=== PATIENT | female | born 1945 | race Caucasian/White ===

== ENCOUNTER → 2016-06-30 | Outpatient (CLI) | payer MEDICARE, OTHER ==
[~2016-06-30] MED LIST: ASPIRIN E.C. 8181 MG PO; CALCIUM CARBON600 MG PO; COUMADIN 3MG3 MG/TAB PO; DIOVAN 160MG160 MG PO; LASIX 40MG TABL40 MG PO; MICRO-K 1010 MEQ PO; NORVASC 5MG5 MG/TAB PO; OMEGA 31000 MG PO; TENORMIN 5050 MG/TAB PO; VITAMIN D32000 I1 PO; ZOCOR 40MG40 MG PO
== END ==
LOC: MC.RAD 13:22
DX: Z12.31 Encounter for screening mammogram for malignant neoplasm of breast (principal)

== ENCOUNTER 2017-03-15 09:10 | Emergency (ER) | payer MEDICARE, OTHER ==
[~2017-03-15] VITALS: Ht 149.9 cm; Wt 67.3 kg
[2017-03-15 09:15] VITALS: TEMP 98.5
[2017-03-15 10:13] LABS: BASO % 0.4 % (0.0-2.0); EOS # 0.2 (0.0-0.7); GRAN # 6.7 (1.4-6.5); GRAN % 85.6 % (42.2-75.2); LYMPH # 0.6 (1.2-3.4); LYMPH % 7.3 % (20.0-51.0); MEAN CELL VOLUME 87 fl (80.0-100.0); MEAN CORPUSCULAR HGB CONC 32 g/dl (33.0-37.0); MEAN PLATELET VOLUME 9.9 fl (7.4-10.4); MONO # 0.3 (0.1-0.6); MONO % 4.2 % (1.7-9.3); PLATELET COUNT 172 K/mm3 (130-400); RED BLOOD COUNT 4.07 M/mm3 (4.10-5.30); REDCELL DISTRIBUTION WIDTH-CV 15.3 % (11.5-14.5); WHITE BLOOD COUNT 7.8 K/mm3 (4.8-10.8)
[2017-03-15 10:15] LABS: HEMATOCRIT 35.5 % (37.0-47.0); HEMOGLOBIN 11.5 g/dl (12.5-16.0); MEAN CORPUSCULAR HEMOGLOBIN 28 pg (27.0-31.0)
[2017-03-15 10:18] LABS: INR 2.3 (0.8-3.0); PROTHROMBIN TIME 26.6 SECONDS (9.7-12.8)
[2017-03-15 10:20] LABS: PARTIAL THROMBOPLASTIN TIME 34.9 SECONDS (26.0-37.0)
[2017-03-15] MEDS ORDERED: LIPITOR 40MG TA40 MG PO (10:21)
[2017-03-15] MEDS ORDERED: DIOVAN 160MG160 MG PO (10:22)
[2017-03-15] MEDS ORDERED: COUMADIN4 MG PO (10:27)
[2017-03-15] MEDS ORDERED: LASIX 40MG TABL40 MG PO (10:49)
[2017-03-15 11:28] LABS: ADJUSTED CALCIUM 9.2 mg/dL (8.4-10.2); ALANINE AMINOTRANSFERASE 83 U/L (9-52); ALBUMIN 3.9 gm/dL (3.5-5.0); ALKALINE PHOSPHATASE 126 U/L (50-136); ANION GAP 7 mmol/L (7-16); BILIRUBIN,TOTAL 1.2 mg/dL (0.0-1.0); BLOOD UREA NITROGEN 18 mg/dL (7-17); CALCIUM 9.1 mg/dL (8.4-10.2); CARBON DIOXIDE 25 mmol/L (22-30); CHLORIDE 108 mmol/L (98-107); CREATININE, serum 0.99 mg/dL (0.52-1.25); GLUCOSE 102 mg/dL (74-106); POTASSIUM 4.5 mmol/L (3.4-5.0); SODIUM 140 mmol/L (137-145); TOTAL PROTEIN 7.6 gm/dL (6.4-8.2)
[2017-03-15 11:40] LABS: B-TYPE NATRIURETIC PEPTIDE 1680 pg/mL (0-125)
[2017-03-15 11:41] LABS: TROPONIN-I < 0.012 ng/mL (0.000-0.034)
[2017-03-15 11:53] VITALS: BP 142/63; PULSE 68
== END 2017-03-15 12:00 | disposition home or self-care (01) ==
LOC: COL.ER 09:10
PROVIDERS: Family Medicine
DX: I50.9 Heart failure, unspecified (principal); I10 Essential (primary) hypertension; I71.4 Abdominal aortic aneurysm, without rupture; Z79.01 Long term (current) use of anticoagulants; Z95.5 Presence of coronary angioplasty implant and graft
CPT/HCPCS: J1940

== ENCOUNTER → 2017-07-09 | Outpatient (CLI) | payer MEDICARE, OTHER ==
[~2017-07-09] MED LIST changes: +COUMADIN4 MG PO; +LIPITOR 40MG TA40 MG PO
== END ==
LOC: MC.RAD 13:09
DX: Z12.31 Encounter for screening mammogram for malignant neoplasm of breast (principal)

== ENCOUNTER → 2018-07-30 | Outpatient (CLI) | payer MEDICARE, OTHER | LOC: MC.RAD 12:56 | DX: Z12.31 Encounter for screening mammogram for malignant neoplasm of breast (principal) ==

== ENCOUNTER → 2019-08-07 | Outpatient (CLI) | payer MEDICARE, OTHER ==
[~2019-08-07] MED LIST changes: +CALCIUM 600MG+D1 TAB PO; +CATAPRES 0.1MG0.1 MG PO; +COUMADIN 1MG1 MG/TAB PO; +COUMADIN 2MG2 MG/TAB PO; +LOVENOX 6060 MG/0.6 SQ; +MICRO-K 10 EXT10 MEQ PO; -MICRO-K 1010 MEQ PO; -OMEGA 31000 MG PO; +OMEGA-31 SGL PO; +VITAMIN D31000 I1 PO; +ZOVIRAX51 TP
== END ==
LOC: MC.RAD 10:00
DX: Z12.31 Encounter for screening mammogram for malignant neoplasm of breast (principal)

== ENCOUNTER → 2021-02-01 | Day surgery (SDC) | payer MEDICARE, OTHER ==
[~2021-02-01] MED LIST changes: +AMOXICILLIN 50500 MG PO; +APRESOLINE 25MG25 MG PO; -CATAPRES 0.1MG0.1 MG PO; +CATAPRES0.3 MG PO; +FERROUSAL325 MG PO; +FOLIC ACID 11 MG/TA1 PO; +NEPHROCAP PO
== END ==
LOC: SDCO 10:30
DX: Z20.822 Contact with and (suspected) exposure to COVID-19 (principal)

== ENCOUNTER 2021-04-18 10:15 | Inpatient (IN) | payer MEDICARE, OTHER ==
[2021-04-18] VITALS (266 sets, daily range): BP systolic 125–165; BP diastolic 48–69; PULSE 64–80; TEMP 97.6–97.7; O2SAT 90–100
[~2021-04-18] VITALS: Ht 142.2 cm; Wt 50.8 kg
[~2021-04-18 10:15] MED LIST changes: -AMOXICILLIN 50500 MG PO; -APRESOLINE 25MG25 MG PO; -FERROUSAL325 MG PO; -FOLIC ACID 11 MG/TA1 PO; -NEPHROCAP PO
[2021-04-18 10:44] LABS: BASO # 0.1 K/mm3 (0.0-0.2); BASO % 0.8 % (0.0-2.0); EOS # 0.1 K/mm3 (0.0-0.7); EOS % 0.7 % (0-4.0); GRAN # 8.4 K/mm3 (1.4-6.5); GRAN % 87.9 % (42.2-75.2); HEMOGLOBIN 10.8 g/dl (12.5-16.0); LYMPH # 0.6 K/mm3 (1.2-3.4); LYMPH % 5.7 % (20.0-51.0); MEAN CELL VOLUME 89 fl (80.0-100.0); MEAN CORPUSCULAR HEMOGLOBIN 29 pg (27.0-31.0); MEAN CORPUSCULAR HGB CONC 32 g/dl (33.0-37.0); MEAN PLATELET VOLUME 8.9 fl (7.4-10.4); MONO # 0.4 K/mm3 (0.1-0.6); MONO % 4.5 % (1.7-9.3); PLATELET COUNT 275 K/mm3 (130-400); RED BLOOD COUNT 3.75 M/mm3 (4.10-5.30); REDCELL DISTRIBUTION WIDTH-CV 16.8 % (11.5-14.5)
[2021-04-18 10:53] LABS: HEMATOCRIT 33.4 % (37.0-47.0)
[2021-04-18 10:57] LABS: PROTHROMBIN TIME 22.4 SECONDS (9.7-12.8)
[2021-04-18 10:59] LABS: PARTIAL THROMBOPLASTIN TIME 33.6 SECONDS (26.0-37.0)
[2021-04-18 11:04] LABS: ALBUMIN 3.6 gm/dL (3.4-4.8); BILIRUBIN,TOTAL 0.6 mg/dL (0.2-1.2); CALCIUM 8.7 mg/dL (8.4-10.2); CREATININE, serum 2.75 mg/dL (0.57-1.11); POTASSIUM 3.9 mmol/L (3.5-4.5); TOTAL PROTEIN 7.2 gm/dL (6.2-8.1)
[2021-04-18 11:13] LABS: TROPONIN-I 0.036 ng/mL (0.00-0.033)
--- NOTE | 2021-04-18 14:00 | NUR ---
Patient arrives to ICU room 4. She is on cardene gtt at 5 mg/hr. She is alert and oriented and able to ambulate from the cart to the bed. Patient has no complaints at this time. She is oriented to the room and call light placed within reach. She is instructed to call for assistance if she needs to get up to the bathroom. Patient verbalizes understanding.
[2021-04-18] MEDS ORDERED: COUMADIN 2MG2 MG/TAB PO (14:35)
[2021-04-18] MEDS ORDERED: COUMADIN 1MG1 MG/TAB PO (14:35)
[2021-04-18] MEDS ORDERED: FERROUSAL325 MG PO (14:36)
[2021-04-18] MEDS ORDERED: AMOXICILLIN 50500 MG PO (14:36)
--- NOTE | 2021-04-18 15:59 | NUR ---
health care social worker met with patient at bedside. Patient lives at home with her Nino here in [facility]. Patient reports that she is fully independent with her activities of daily living and that she is the caregiver for her . Patient is concerned because her is home alone right now. Nino was recently discharged from this hospital with [facility]. Patient reports that she does not use any assistive devices to assist with mobility and does not utilize O2. PCP is Dr. Euceda and she utilizes [facility] for perscriptions with no cost difficulties. Patient reports that she does have a DPOA-HC established and that her is her agent. Patient's daughter Melody lives in [place]. Patient on the phone with her daughter when i entered the room. Melody reports that she is not coming down from today to assist with her father. Milla with [facility] contacted and notified of the situation. Milla states that Nino had HH come in earlier today. Amando is going to reach out to Nino's insurance case manager and nurse to check on him and will call me with an updates that i can provide to the patient.
--- NOTE | 2021-04-18 19:15 | NUR ---
Bedside report given to GRACIE Bermeo. Patient sitting in bed eating some crackers d/t some nausea. Cardene infusing at 10 mg/hr through Left AC IV.
[2021-04-19] VITALS (386 sets, daily range): BP systolic 126–196; BP diastolic 54–78; PULSE 67–85; TEMP 97.4–99; O2SAT 32–100
[2021-04-19 06:25] LABS: BASO % 0.7 % (0.0-2.0); EOS # 0.2 K/mm3 (0.0-0.7); EOS % 2.8 % (0-4.0); GRAN # 4.5 K/mm3 (1.4-6.5); GRAN % 79.8 % (42.2-75.2); HEMOGLOBIN 9.3 g/dl (12.5-16.0); LYMPH # 0.5 K/mm3 (1.2-3.4); MEAN CELL VOLUME 91 fl (80.0-100.0); MEAN CORPUSCULAR HEMOGLOBIN 29 pg (27.0-31.0); MEAN CORPUSCULAR HGB CONC 32 g/dl (33.0-37.0); MEAN PLATELET VOLUME 8.9 fl (7.4-10.4); MONO # 0.4 K/mm3 (0.1-0.6); MONO % 7.3 % (1.7-9.3); RED BLOOD COUNT 3.19 M/mm3 (4.10-5.30); REDCELL DISTRIBUTION WIDTH-CV 16.8 % (11.5-14.5)
[2021-04-19 06:26] LABS: HEMATOCRIT 28.9 % (37.0-47.0); PLATELET COUNT 163 K/mm3 (130-400)
[2021-04-19 06:33] LABS: INR 2.4 (0.8-3.0); PROTHROMBIN TIME 26.7 SECONDS (9.7-12.8)
[2021-04-19 06:43] LABS: ALBUMIN 2.9 gm/dL (3.4-4.8); BILIRUBIN,TOTAL 0.5 mg/dL (0.2-1.2); CALCIUM 7.8 mg/dL (8.4-10.2); CHOLESTEROL RISK RATIO 6.1; CREATININE, serum 2.7 mg/dL (0.57-1.11); POTASSIUM 3.6 mmol/L (3.5-4.5); TOTAL PROTEIN 5.9 gm/dL (6.2-8.1)
--- NOTE | 2021-04-19 07:00 | NUR ---
PT DOWN TO MRI/MRA.
--- NOTE | 2021-04-19 09:42 | NUR ---
Message left with 's nurse at [facility] to received vein mapping results.
--- NOTE | 2021-04-19 09:44 | NUR ---
NOTIFIED OF SURGERY CONSULT FOR FISTULA AND HD CATH PLACEMENT.
--- NOTE | 2021-04-19 10:43 | NUR ---
Patient to have dialysis catheter surgically placed tomorrow. Concerns for the patients being left at home alone. Contact made with [facility] and they report they went out to see her last night at 1900, have seen him this morning and GRACIE Dudley is to go out again today at 1300. [facility] RN states that is not safe to be at home alone. Patient doesn't believe that her daughter Antonia can make it down to stay with her father. Attempted to make contact with the patient's daughter Antonia in addition to Antonia's Aiden ([phone]) to talk to them about coming and staying with the patient's . Antonia interested in having initiated for her self upon dc. Referral made to [facility].
[2021-04-19 11:30] LABS: PARTIAL THROMBOPLASTIN TIME 27.1 SECONDS (26.0-37.0)
--- NOTE | 2021-04-19 14:37 | NUR ---
CALLED FOR PT'S SBP IN THE 170'S. STATES SHE WILL ORDER PRN HYDRALAZINE, IF THAT DOES NOT WORK WILL NEED TO RESTART NICOLA LEIVA.
--- NOTE | 2021-04-19 15:09 | NUR ---
Referral faxed to [facility]
--- NOTE | 2021-04-19 15:29 | NUR ---
Phone called received from the patient's daughter Melody and her Aiden. They states they just got off of the phone with their father, the patient's and he informed them that he was doing fine. I let both Melody and Aiden know that the [facility] RN, Octavia verbalized that she did not feel like their father should ebe left alone. Melody and Aiden are open to coming and making arrangements to stay with the patient's but would like to talk to the [facility] RN first.
[2021-04-19 18:10] LABS: INR 2.2 (0.8-3.0); PROTHROMBIN TIME 24.1 SECONDS (9.7-12.8)
--- NOTE | 2021-04-19 18:15 | NUR ---
NOTIFIED OF INR 2.2. STATES WILL ORDER MORE VITAMIN K
--- NOTE | 2021-04-19 18:30 | NUR ---
Received report from GRACIE Jarrett. All medications verified and all questions answered. Patient resting in bed in sitting position watching TV. Patient on RA, VSS except for BP of 199/79. Patient reiving PM blood pressure medication. Patient on heparin gtt at 9mls/hr. No concerns or complaints noted from patient at this time. Will resume care of patient at this time.
[2021-04-19 20:25] LABS: COLLECTION METHOD CLEAN CATCH
[2021-04-19 20:46] LABS: PH 5 (5-8); SQUAMOUS EPITHELIAL 0-2 /hpf; URINE APPEARANCE Clear; URINE BACTERIA Moderate /hpf; URINE BILIRUBIN Negative (NEGATIVE); URINE BLOOD Negative (NEGATIVE); URINE COLOR Yellow; URINE GLUCOSE Negative (NEGATIVE); URINE KETONE Trace (NEGATIVE); URINE LEUKOCYTE ESTERASE Negative (NEGATIVE); URINE NITRATE Negative (NEGATIVE); URINE PROTEIN(semi-quant) Negative (NEGATIVE); URINE RBC 0-2 /hpf; URINE UROBILINOGEN Negative (NEGATIVE)
[2021-04-19 23:30] LABS: HEPATITIS B SURFACE ANTIBODY <2.0 (()); HEPATITIS B SURFACE ANTIGEN Negative (Negative); HEPATITIS C VIRUS ANTIBODY Negative (Negative)
[2021-04-20] VITALS (627 sets, daily range): BP systolic 144–198; BP diastolic 55–83; PULSE 75–82; TEMP 97.6–98.2; O2SAT 97–100
[2021-04-20 06:14] LABS: MEAN CORPUSCULAR HGB CONC 29 g/dl (33.0-37.0); PLATELET COUNT 190 K/mm3 (130-400); RED BLOOD COUNT 3.34 M/mm3 (4.10-5.30); REDCELL DISTRIBUTION WIDTH-CV 17.4 % (11.5-14.5)
[2021-04-20 06:17] LABS: HEMATOCRIT 33.4 % (37.0-47.0); HEMOGLOBIN 9.6 g/dl (12.5-16.0); MEAN CELL VOLUME 100 fl (80.0-100.0); MEAN CORPUSCULAR HEMOGLOBIN 29 pg (27.0-31.0)
[2021-04-20 06:34] LABS: CALCIUM 7.7 mg/dL (8.4-10.2); CREATININE, serum 2.94 mg/dL (0.57-1.11); POTASSIUM 3.5 mmol/L (3.5-4.5)
[2021-04-20 06:46] LABS: INR 1.5 (0.8-3.0); PROTHROMBIN TIME 16.2 SECONDS (9.7-12.8)
--- NOTE | 2021-04-20 07:00 | NUR ---
REPORT RECEIVED FROM GRACIE DAWN; PATIENT IN BED RESTING, VITALS ARE WITHIN NORMAL LIMITS WITH THE EXCEPTION OF BP WHICH HAS BEEN ELEVATED OVERNIGHT AND 2 DOSES OF HYDRALAZINE WERE GIVEN PER LÓPEZ.
--- NOTE | 2021-04-20 10:54 | NUR ---
HEPARIN DRIP STOPPED AT 0900 FOR SURGERY THAT IS SCHEDULED FOR LATER THIS AFTERNOON.
--- NOTE | 2021-04-20 18:34 | NUR ---
PATIENT LEFT THE FLOOR AND WENT TO SURGERY FOR FISTULA/DIALYSIS PORT PLACEMENT AT 1700
--- NOTE | 2021-04-20 19:15 | NUR ---
PATIENT ARRIVED TO ROOM AT THIS TIME VIA BED ATTACHED TO MONITORS, NOTED NEW DIALYSIS CATHETER TO RIGHT CHEST WITH DRESSING CDI, AND INCISION FROM AV FISTULA TO RIGHT WRIST AREA WHICH IS WELL APPROXIMATED, SLIGHT SWELLING NOTED TO AREA, REVIEWED WITH PATIENT THAT SHE SHOULD NEVER HAVE BLOOD PRESSURES, IV'S OR LABS OBTAINED FROM THAT ARM
--- NOTE | 2021-04-20 20:51 | NUR ---
PATIENT NOTED TO HAVE FSBS OF 59 GIVEN OPTIONS PATIENT STATED THAT SHE WAS HUNGRY AND WOULD PREFER TO TRY TO EAT SOMETHING RATHER THAN CONSUME GLUCOSE PASTE, GIVEN SANDWHICH TRAY, AND SPRITE.
--- NOTE | 2021-04-20 21:29 | NUR ---
PATIENT CONSUMED TURKEY FROM SANDWICH TRAY, APPLESAUCE AND SPRITE AT THIS TIME, WILL MONITOR FSBS IN APPROX 2 HOURS TO ENSURE APPROPRIATE LEVEL
[2021-04-21] VITALS (537 sets, daily range): BP systolic 151–191; BP diastolic 50–69; PULSE 71–85; TEMP 97.4–97.8; O2SAT 81–100
[2021-04-21 03:19] LABS: MEAN CORPUSCULAR HGB CONC 32 g/dl (33.0-37.0); MEAN PLATELET VOLUME 9.1 fl (7.4-10.4); PLATELET COUNT 166 K/mm3 (130-400); RED BLOOD COUNT 2.99 M/mm3 (4.10-5.30); REDCELL DISTRIBUTION WIDTH-CV 17.5 % (11.5-14.5)
[2021-04-21 03:20] LABS: HEMATOCRIT 27.1 % (37.0-47.0); HEMOGLOBIN 8.6 g/dl (12.5-16.0); MEAN CELL VOLUME 91 fl (80.0-100.0); MEAN CORPUSCULAR HEMOGLOBIN 29 pg (27.0-31.0)
[2021-04-21 03:27] LABS: INR 1.1 (0.8-3.0); PROTHROMBIN TIME 12.7 SECONDS (9.7-12.8)
[2021-04-21 03:34] LABS: CALCIUM 7.7 mg/dL (8.4-10.2); CREATININE, serum 3.56 mg/dL (0.57-1.11); POTASSIUM 3.6 mmol/L (3.5-4.5)
--- NOTE | 2021-04-21 03:36 | NUR ---
Lab called this RN with critical CO2 result. Result taken as primary nurse busy with patient and relayed to GRACIE Bermeo
--- NOTE | 2021-04-21 08:29 | NUR ---
REPORT RECEIVED FROM GRACIE GALDAMEZ. PATIENT IS RESTING IN BED COMFORTABLY.
--- NOTE | 2021-04-21 11:44 | NUR ---
First visit from the management engineer. No needs right now.
--- NOTE | 2021-04-21 14:08 | NUR ---
Attempt made to contact the patients daughter Melody and was unsuccessful.
--- NOTE | 2021-04-21 14:22 | NUR ---
PATIENT TOLERATED HER 1ST HD TX WITH 750 ML FLUID REMOVED TODAY. NEXT PLANNED HD TX TOMORROW, Sunday04/22/21.
[2021-04-22] VITALS (7 sets, daily range): BP systolic 129–179; BP diastolic 45–75; PULSE 61–93; TEMP 97.4–98.2
--- NOTE | 2021-04-22 05:09 | NUR ---
Patient rested quietly throughout shift nurse manager, call cabello w/i reach, VS stable, heparin gtt tolerated w/o s/s of bleeding, no s/s of hypo/hyper glycemia.
--- NOTE | 2021-04-22 07:10 | NUR ---
Pt. progressing w/ plan of care. Pt. resting in bed and reports headache pain is now 1/10 and has improved. This RN discussed w/ patient plan of care. Pt. ordered breakfast and denies further needs at this time. Call light and belongings in reach. Pt. instructed to call before getting OOB.
--- NOTE | 2021-04-22 09:15 | NUR ---
Pt.'s Xa heparin level was high, per orders the heparin drip is to be stopped for two hours. Plan for new Xa lab to be drawn two hours after the heparin infusion has been stopped. Plan for new lab to be drawn at 11:45am.
[2021-04-22 09:20] LABS: HEMOGLOBIN 10.2 g/dl (12.5-16.0); MEAN CELL VOLUME 90 fl (80.0-100.0); MEAN CORPUSCULAR HEMOGLOBIN 29 pg (27.0-31.0); MEAN CORPUSCULAR HGB CONC 32 g/dl (33.0-37.0); MEAN PLATELET VOLUME 9.3 fl (7.4-10.4); PLATELET COUNT 205 K/mm3 (130-400); RED BLOOD COUNT 3.52 M/mm3 (4.10-5.30); REDCELL DISTRIBUTION WIDTH-CV 17.6 % (11.5-14.5)
[2021-04-22 09:23] LABS: HEMATOCRIT 31.8 % (37.0-47.0)
[2021-04-22 09:25] LABS: INR 1.1 (0.8-3.0); PROTHROMBIN TIME 12.3 SECONDS (9.7-12.8)
[2021-04-22 09:33] LABS: CALCIUM 7.9 mg/dL (8.4-10.2); CREATININE, serum 2.98 mg/dL (0.57-1.11); POTASSIUM 3.7 mmol/L (3.5-4.5)
--- NOTE | 2021-04-22 10:00 | NUR ---
PATIENT'S NEXT HD TX ON Sunday04/25/21 @ 1515 @ [facility] DUE TO THE HOLIDAY SCHEDULE. PLANNED HD TXS WILL BE 2XWK ON TUESDAYS & SATURDAYS @ 1530.
--- NOTE | 2021-04-22 11:37 | NUR ---
PATIENT TOLERATED HER 2ND HD TX WITH 2L OF FLUID OFF. NEXT PLANNED HD TX ON Sunday04/25/21 @ 1515 @ [facility].
--- NOTE | 2021-04-22 14:19 | NUR ---
UPDATED NOTE-NEXT HD TX TOMORROW, Sunday04/23/21 @ 0800.
--- NOTE | 2021-04-22 14:46 | NUR ---
Heparin drip was restarted at 1315, see new rate in orders. Plan for Heparin Xa level to be drawn at 191. Pt. denies needs at this time, call light and belongings in reach.
[2021-04-23] VITALS (7 sets, daily range): BP systolic 109–155; BP diastolic 38–64; PULSE 70–80; TEMP 97.5–98.3
--- NOTE | 2021-04-23 08:13 | NUR ---
Patient sitting at the edge of the bed to take morning medications. Waiting for breakfast to arrive. Plan at this time is for the patient to dialyze and then discharge. Patient does not have any complaints/concerns at this time.
[2021-04-23 08:38] LABS: BASO % 0.5 % (0.0-2.0); EOS # 0.2 K/mm3 (0.0-0.7); EOS % 2.7 % (0-4.0); GRAN % 80.6 % (42.2-75.2); HEMOGLOBIN 10.2 g/dl (12.5-16.0); LYMPH # 0.6 K/mm3 (1.2-3.4); LYMPH % 7.1 % (20.0-51.0); MEAN CELL VOLUME 93 fl (80.0-100.0); MEAN CORPUSCULAR HEMOGLOBIN 29 pg (27.0-31.0); MEAN CORPUSCULAR HGB CONC 31 g/dl (33.0-37.0); MEAN PLATELET VOLUME 9.9 fl (7.4-10.4); MONO # 0.7 K/mm3 (0.1-0.6); MONO % 8.5 % (1.7-9.3); PLATELET COUNT 173 K/mm3 (130-400); RED BLOOD COUNT 3.53 M/mm3 (4.10-5.30); REDCELL DISTRIBUTION WIDTH-CV 17.5 % (11.5-14.5)
[2021-04-23 08:40] LABS: HEMATOCRIT 32.8 % (37.0-47.0)
[2021-04-23 08:48] LABS: CALCIUM 8.1 mg/dL (8.4-10.2); CREATININE, serum 3.14 mg/dL (0.57-1.11); POTASSIUM 3.6 mmol/L (3.5-4.5)
[2021-04-23 10:37] LABS: INR 1.2 (0.8-3.0); PROTHROMBIN TIME 13.6 SECONDS (9.7-12.8)
--- NOTE | 2021-04-23 12:31 | NUR ---
Patient had some nausea & dry heaves with her 3rd HD tx, resolved with UF off the last 45 mins of tx. Removed 1L of fluid today. Next planned HD tx @ [facility] on Sunday04/25/21 @ 2451.
--- NOTE | 2021-04-23 13:48 | NUR ---
MARICEL update: SW recieved call from [employer] about transportation for the patient on sunday. Called [facility] about supports. [facility]TR reports that they live in [place] but the clients did call [facility] and make transportation accomadations through them and they are scheduled to get picked up at 02:30 p.m. on Sunday. Educated that we can give a taxi voucher to get the patient home.
--- NOTE | 2021-04-23 18:30 | NUR ---
Patient on Heparin gtt @ 7ml/hr. tolerating well, IV site wnl, VS stable, no c/o at this time.
--- NOTE | 2021-04-23 20:42 | NUR ---
Call placed to Dr. Gavin re: blood pressure - NON: change Hydralazine to 25mg po bid starting with am dose, hold tonormin tonight and resume in am. Updated patient on plan of care.
[2021-04-24 03:58] VITALS: BP 128/45; PULSE 72; TEMP 98.3
--- NOTE | 2021-04-24 05:01 | NUR ---
Patient sitting up in bed, good spirits noted, denies pain, call cabello w/i reach, updated patient on plan of care, verbalizes understanding, will continue to monitor.
[2021-04-24 08:25] VITALS: BP 130/44; PULSE 73; TEMP 97.8
--- NOTE | 2021-04-24 09:31 | NUR ---
Patient sitting in bed, eating breakfast upon entering the room. Patient does not have any complaints/concerns this morning. Heparin drip continues to run at 7mL/hr. Hep Xa was just drawn.
[2021-04-24 09:39] LABS: BASO # 0.1 K/mm3 (0.0-0.2); BASO % 0.5 % (0.0-2.0); EOS # 0.3 K/mm3 (0.0-0.7); EOS % 2.8 % (0-4.0); GRAN # 7.4 K/mm3 (1.4-6.5); GRAN % 80.1 % (42.2-75.2); LYMPH # 0.7 K/mm3 (1.2-3.4); MEAN CELL VOLUME 91 fl (80.0-100.0); MEAN CORPUSCULAR HGB CONC 31 g/dl (33.0-37.0); MEAN PLATELET VOLUME 9.8 fl (7.4-10.4); MONO # 0.7 K/mm3 (0.1-0.6); MONO % 7.7 % (1.7-9.3); PLATELET COUNT 168 K/mm3 (130-400); RED BLOOD COUNT 3.37 M/mm3 (4.10-5.30); REDCELL DISTRIBUTION WIDTH-CV 17.3 % (11.5-14.5)
[2021-04-24 09:41] LABS: HEMATOCRIT 30.7 % (37.0-47.0); HEMOGLOBIN 9.6 g/dl (12.5-16.0); MEAN CORPUSCULAR HEMOGLOBIN 28 pg (27.0-31.0)
--- NOTE | 2021-04-24 09:49 | NUR ---
Hep Xa came back at 0.56 which is w/in the goal range. Heparin gtt will remain at 7mL/hr.
[2021-04-24 09:50] LABS: CALCIUM 8.5 mg/dL (8.4-10.2); CREATININE, serum 3.29 mg/dL (0.57-1.11); POTASSIUM 3.7 mmol/L (3.5-4.5)
[2021-04-24 09:53] LABS: INR 1.5 (0.8-3.0); PROTHROMBIN TIME 16.3 SECONDS (9.7-12.8)
[2021-04-24 13:24] VITALS: BP 119/48; PULSE 72; TEMP 97.8
[2021-04-24 15:02] VITALS: BP 125/41; PULSE 74; TEMP 97.2
--- NOTE | 2021-04-24 17:26 | NUR ---
Patient has done well today and has not had any complaints/concerns. Heparin drip is still running. Next Hep Xa scheduled for 04/25 @ 0600.
--- NOTE | 2021-04-24 19:17 | NUR ---
PT SITTING UP IN BED. CALL LIGHT IN REACH. BED IN LOWEST POSITION, WHEELS LOCKED. PT ASKED FOR PHONE LOSS CONTROL ENGINEER, TOLD PT THIS RN WILL LOOK TO SEE IF ANY EXTRA WERE AROUND, BUT CANNOT JO HAVE AVAILABLE LOSS CONTROL ENGINEER. NO OTHER NEEDS AT THIS TIME.
[2021-04-24 20:45] VITALS: BP 138/40; PULSE 76; TEMP 98.4
--- NOTE | 2021-04-24 22:11 | NUR ---
PT IS SITTING UP IN BED. NO COMPLAINTS. TROY JUAREZ FOUND PT A PHONE ELECTRIC PLATER, CALL LIGHT IN REACH. PT EXPRESSED EAGERNESS AND NEED TO BE DISCHARGED SOON. 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 SHE IS WORRIED ABOUT HIS HEALTH. THIS RN EXPLAINED HOW THE HEPARIN BRIDGE TO COUMADIN WILL WORK AND ABOUT INR LEVELS IN ORDER TO D/C HEPARIN GTT. PT VERBALIZED UNDERSTANDING BUT IS READY TO GO HOME.
[2021-04-25 00:04] VITALS: BP 128/43; PULSE 76; TEMP 98.7
[2021-04-25 04:00] VITALS: BP 152/56; PULSE 81; TEMP 97.9
--- NOTE | 2021-04-25 06:40 | NUR ---
PT HAD UNEVENTFUL NIGHT. NO NEEDS AT THIS TIME.
[2021-04-25 06:55] LABS: BASO % 0.2 % (0.0-2.0); EOS # 0.2 K/mm3 (0.0-0.7); EOS % 2.4 % (0-4.0); GRAN # 7.8 K/mm3 (1.4-6.5); GRAN % 83.2 % (42.2-75.2); LYMPH # 0.5 K/mm3 (1.2-3.4); LYMPH % 5.1 % (20.0-51.0); MEAN CELL VOLUME 94 fl (80.0-100.0); MEAN CORPUSCULAR HGB CONC 31 g/dl (33.0-37.0); MEAN PLATELET VOLUME 10.2 fl (7.4-10.4); MONO # 0.7 K/mm3 (0.1-0.6); MONO % 7.9 % (1.7-9.3); PLATELET COUNT 147 K/mm3 (130-400); RED BLOOD COUNT 2.77 M/mm3 (4.10-5.30); REDCELL DISTRIBUTION WIDTH-CV 16.9 % (11.5-14.5)
[2021-04-25 07:01] LABS: CALCIUM 7.4 mg/dL (8.4-10.2); POTASSIUM 3.5 mmol/L (3.5-4.5)
[2021-04-25 07:05] LABS: CREATININE, serum 4.19 mg/dL (0.57-1.11)
[2021-04-25 07:08] LABS: HEMOGLOBIN 8.1 g/dl (12.5-16.0); MEAN CORPUSCULAR HEMOGLOBIN 29 pg (27.0-31.0)
[2021-04-25 07:10] LABS: INR 1.9 (0.8-3.0); PROTHROMBIN TIME 20.7 SECONDS (9.7-12.8)
--- NOTE | 2021-04-25 08:00 | NUR ---
ASSESSMENT COMPLETE. PT COOPERATIVE WITH CARES. PT RESTING IN BED READING A BOOK. PT HAS DIALYSIS AT NOON. PT VERY ANXIOUS TO GET HOME. ASSURED PT WE WOULD GET HER OUT OF HERE SOON MEDICALLY SAFE TO. PT DENIES PAIN, PALPITATIONS, SOB OR DIZZINESS. PT STATES SHE HAS NO OTHER NEEDS AT THIS TIME. CALL LIGHT WITHIN REACH.
[2021-04-25 08:16] VITALS: BP 156/49; PULSE 78; TEMP 97.5
--- NOTE | 2021-04-25 12:11 | NUR ---
Patient is going to dialysis at this time
--- NOTE | 2021-04-25 14:53 | NUR ---
Department Sales Manager contacted Milla at [facility] and had transport for this afternoon cancelled as patient may not discharge today.
[2021-04-25 15:25] VITALS: BP 164/68; PULSE 87; TEMP 97.6
--- NOTE | 2021-04-25 15:26 | NUR ---
Patient tolerated her 4th HD tx with 1L of fluid removed. Next planned HD tx @ outpatient clinic on Sunday04/30/21 @ 1515 @ [facility] in [place].
--- NOTE | 2021-04-25 17:00 | NUR ---
HepXa 0.86, stop for 1 hours, resume at 200un/hr less at restart, TRA 600units per hour and next recheck Xa level will be at 04/26 0001
[2021-04-25 18:25] LABS: HEMATOCRIT 30.4 % (37.0-47.0); HEMOGLOBIN 9.5 g/dl (12.5-16.0)
[2021-04-25 19:50] VITALS: BP 142/44; PULSE 80; TEMP 98.3
[2021-04-26 00:02] VITALS: BP 128/42; PULSE 79; TEMP 98.8
[2021-04-26 04:39] VITALS: BP 115/43; PULSE 73; TEMP 97.9
--- NOTE | 2021-04-26 06:00 | NUR ---
Patient rested quietly throughout nightshift, tolerating heparin gtt w/o s/s of bleeding, next Hep XA @ 0700, updated patient on plan of care, no c/o pain, no c/o headache. Call irineo w/i tahir.
[2021-04-26 07:35] VITALS: BP 158/51; PULSE 78; TEMP 97.6
[2021-04-26 08:34] LABS: BASO % 0.3 % (0.0-2.0); EOS # 0.4 K/mm3 (0.0-0.7); EOS % 3.7 % (0-4.0); GRAN # 8.4 K/mm3 (1.4-6.5); GRAN % 81.4 % (42.2-75.2); LYMPH # 0.6 K/mm3 (1.2-3.4); LYMPH % 5.6 % (20.0-51.0); MEAN CELL VOLUME 94 fl (80.0-100.0); MEAN CORPUSCULAR HGB CONC 31 g/dl (33.0-37.0); MONO # 0.8 K/mm3 (0.1-0.6); MONO % 7.9 % (1.7-9.3); PLATELET COUNT 163 K/mm3 (130-400); RED BLOOD COUNT 3.02 M/mm3 (4.10-5.30); REDCELL DISTRIBUTION WIDTH-CV 17.2 % (11.5-14.5)
[2021-04-26 08:39] LABS: HEMATOCRIT 28.5 % (37.0-47.0); HEMOGLOBIN 8.9 g/dl (12.5-16.0); MEAN CORPUSCULAR HEMOGLOBIN 29 pg (27.0-31.0)
[2021-04-26 08:46] LABS: INR 2.3 (0.8-3.0); PROTHROMBIN TIME 25.5 SECONDS (9.7-12.8)
[2021-04-26 08:50] LABS: CREATININE, serum 2.82 mg/dL (0.57-1.11); POTASSIUM 3.6 mmol/L (3.5-4.5)
--- NOTE | 2021-04-26 09:18 | NUR ---
HepXa level 0.44, no rate change, recheck level in 6 hrs
--- NOTE | 2021-04-26 09:30 | NUR ---
ASSESSMENT COMPLETE. PT COOPERATIVE WITH CARES. PT RESTING IN BED READING A BOOK. PT EAGER TO GO HOME. PT DENIES PAIN, PALPITATIONS, SOB OR DIZZINESS. PT STATES SHE HAS NO OTHER NEEDS AT THIS TIME. CALL LIGHT WITHIN REACH.
[2021-04-26] MEDS ORDERED: APRESOLINE 25MG25 MG PO (10:51)
[2021-04-26] MEDS ORDERED: NORVASC 5MG5 MG/TAB PO (10:52)
[2021-04-26] MEDS ORDERED: FOLIC ACID 11 MG/TA1 PO (10:57)
[2021-04-26] MEDS ORDERED: NEPHROCAP PO (10:58)
[2021-04-26 11:37] VITALS: BP 112/42; PULSE 70; TEMP 97.9
[2021-04-26 16:20] LABS: INR 2.4 (0.8-3.0); PROTHROMBIN TIME 26.5 SECONDS (9.7-12.8)
[2021-04-26 16:46] VITALS: BP 118/42; PULSE 74; TEMP 98.3
--- NOTE | 2021-04-26 18:17 | NUR ---
PT RESTING IN BED READING A BOOK, WAITING ON HER DINNER. PT'S INR WAS NOT QUITE WHERE HER PHYSICIAN WANTED IT TO BE, SO PHYSICIAN WANTS PT TO STAY ON HEPARIN OVERNIGHT AND CHECK MORNING INR. PT DISAPPOINTED ABOUT NOT BEING ABLE TO GO HOME TODAY, BUT PT STATES SHE UNDERSTANDS. PT DENIES PAIN, PALPITATIONS, SOB OR DIZZINESS. PT STATES SHE HAS NO OTHER NEEDS AT THIS TIME. CALL LIGHT WITHIN REACH.
[2021-04-26 20:55] VITALS: BP 121/38; PULSE 79; TEMP 98.5
[2021-04-27 00:03] VITALS: BP 129/45; PULSE 67; TEMP 98.3
[2021-04-27 04:01] VITALS: BP 122/41; PULSE 76; TEMP 97.5
--- NOTE | 2021-04-27 04:39 | NUR ---
Patient resting quietly, looking forward to going home for Thanksgiving, tolerating heparin gtt w/o s/s of bleeding, denies pain, good spirits, no s/s of hypo/hyper glycemia, updated on plan of care, verbalized understanding.
[2021-04-27 07:17] LABS: INR 2.3 (0.8-3.0); PROTHROMBIN TIME 25.7 SECONDS (9.7-12.8)
[2021-04-27 07:39] VITALS: BP 135/48; PULSE 84; TEMP 98.2
--- NOTE | 2021-04-27 09:33 | NUR ---
PT RESTING IN BED. MORNING MEDICATIONS GIVEN. SHIFT ASSESSMENT COMPLETED. DENIES ANY NEEDS AT THIS TIME. IS EAGER TO BE DISCHARGED.
--- NOTE | 2021-04-27 10:10 | NUR ---
MARICEL attended clinical rounds. The hospitalist is ready to discharge the patient today. MARICEL followed up with the patient to review discharge plan. The patient confirms that she will be returning home with her and [facility]. She reports that her daughter, Antonia, is in town and will transport her home today. The patient reports that she plans on utilizing [facility] for transportation to dialysis and her next dialysis day will be on Sunday at 1530. MARICEL presented and read the IM form outloud to the patient. The patient verbalized understanding and signed the form. MARICEL provided her with a copy. MARICEL contacted and updated the patient's daughter, Antonia. Antonia reports that they already have transport set up with [facility] at 1430 on Sunday for dialysis. The patient is to discharge back home with her today, 04/27, with home health services for correction/PT/OT from [facility]. MARICEL attempted to notify Milla at [facility]. MARICEL left her a voicemail and faxed her discharge orders. No additional needs at this time.
== END 2021-04-27 10:57 | disposition home health service (06) | DRG 264 ==
LOC: COL.ER 10:15 → ICU 12:20 → MEDICAL 04-21 13:04 → SURG 04-26 06:24 → MEDICAL 04-26 06:24
PROVIDERS: Emergency Medicine; Internal Medicine; Internal Medicine Nephrology; Physician Assistant; Student in an Organized Health Care Education/Training Program; Surgery; ADMIT Internal Medicine
PROC: 031B3ZF Bypass Right Radial Artery to Lower Arm Vein, Percutaneous Approach (ICD-10-PCS; principal; 2021-04-21)
PROC: 5A1D70Z Performance of Urinary Filtration, Intermittent, Less than 6 Hours Per Day (ICD-10-PCS; 2021-04-21)
PROC: 0JH63XZ Insertion of Tunneled Vascular Access Device into Chest Subcutaneous Tissue and Fascia, Percutaneous Approach (ICD-10-PCS; 2021-04-21)
PROC: 05HM33Z Insertion of Infusion Device into Right Internal Jugular Vein, Percutaneous Approach (ICD-10-PCS; 2021-04-21)
PROC: B5131ZA Fluoroscopy of Right Jugular Veins using Low Osmolar Contrast, Guidance (ICD-10-PCS; 2021-04-21)
DX: I16.1 Hypertensive emergency (principal); N18.6 End stage renal disease; E87.2 Acidosis; N17.9 Acute kidney failure, unspecified; Q60.0 Renal agenesis, unilateral; I12.0 Hypertensive chronic kidney disease with stage 5 chronic kidney disease or end stage renal disease; I25.10 Atherosclerotic heart disease of native coronary artery without angina pectoris; K21.9 Gastro-esophageal reflux disease without esophagitis; E03.9 Hypothyroidism, unspecified; E78.5 Hyperlipidemia, unspecified; D63.1 Anemia in chronic kidney disease; R73.9 Hyperglycemia, unspecified; Z20.822 Contact with and (suspected) exposure to COVID-19; Z95.4 Presence of other heart-valve replacement; Z79.01 Long term (current) use of anticoagulants; Z79.82 Long term (current) use of aspirin; Z23 Encounter for immunization; M47.9 Spondylosis, unspecified; M19.91 Primary osteoarthritis, unspecified site; D47.2 Monoclonal gammopathy
CPT/HCPCS: 99223-AI; 99231-AI; 99232-AI; 99233-AI; 99239; J0360; J0690; J1644; J1650; J1756; J1940; J2704; J3010; J7030; J7050; Q5105

== ENCOUNTER 2021-09-30 13:10 | Outpatient (RCR) | payer MEDICARE, OTHER ==
[~2021-09-30 13:10] MED LIST changes: +AMOXICILLIN 50500 MG PO; +APRESOLINE 25MG25 MG PO; +FERROUSAL325 MG PO; +FOLIC ACID 11 MG/TA1 PO; +NEPHROCAP PO
== END 2021-10-01 ==
LOC: WSPT
DX: R60.0 Localized edema (principal)

== ENCOUNTER 2021-10-29 19:03 | Emergency (ER) | payer MEDICARE, OTHER ==
[~2021-10-29] VITALS: Ht 144.8 cm; Wt 50.0 kg
[2021-10-29 19:38] LABS: BASO # 0.1 K/mm3 (0.0-0.2); EOS # 0.2 K/mm3 (0.0-0.7); EOS % 2.8 % (0.0-4.0); GRAN # 5.1 K/mm3 (1.4-6.5); GRAN % 75.9 % (42.2-75.2); HEMATOCRIT 41.4 % (37.0-47.0); HEMOGLOBIN 13.6 g/dl (12.5-16.0); LYMPH # 0.8 K/mm3 (1.2-3.4); LYMPH % 12.3 % (20.0-51.0); MEAN CELL VOLUME 98 fl (80.0-100.0); MEAN CORPUSCULAR HEMOGLOBIN 32 pg (27-31); MEAN CORPUSCULAR HGB CONC 33 g/dl (33.0-37.0); MEAN PLATELET VOLUME 8.9 fl (7.4-10.4); MONO # 0.5 K/mm3 (0.1-0.6); MONO % 7.6 % (1.7-9.3); PLATELET COUNT 238 K/mm3 (130-400); RED BLOOD COUNT 4.23 M/mm3 (4.10-5.30); REDCELL DISTRIBUTION WIDTH-CV 14.8 % (11.5-14.5)
[2021-10-29 19:52] LABS: INR 1.4 (0.8-3.0); PROTHROMBIN TIME 15.9 SECONDS (9.7-12.8)
[2021-10-29 20:00] LABS: ALBUMIN 3.7 gm/dL (3.4-4.8); BILIRUBIN,TOTAL 0.8 mg/dL (0.2-1.2); CREATININE, serum 2.84 mg/dL (0.57-1.11); POTASSIUM 3.3 mmol/L (3.5-4.5); TOTAL PROTEIN 8.1 gm/dL (6.2-8.1)
[2021-10-29] MEDS ORDERED: CARDIZEM 60MG T60 MG PO ×2 (21:18→21:23)
[2021-10-29 23:16] VITALS: BP 142/83; PULSE 81; TEMP 97.9
== END 2021-10-29 22:00 | disposition home or self-care (01) ==
LOC: COL.ER 19:03
PROVIDERS: Personal Emergency Response Attendant
DX: I48.91 Unspecified atrial fibrillation (principal); I12.9 Hypertensive chronic kidney disease with stage 1 through stage 4 chronic kidney disease, or unspecified chronic kidney disease; N18.9 Chronic kidney disease, unspecified; Z79.01 Long term (current) use of anticoagulants; Z99.2 Dependence on renal dialysis; Z95.5 Presence of coronary angioplasty implant and graft
CPT/HCPCS: J7050

== ENCOUNTER 2021-11-19 18:20 | Emergency (ER) | payer MEDICARE, OTHER ==
[~2021-11-19] VITALS: Ht 144.8 cm; Wt 49.5 kg
[~2021-11-19 18:20] MED LIST changes: +CARDIZEM 60MG T60 MG PO
[2021-11-19 18:26] VITALS: TEMP 97.4
[2021-11-19 18:48] LABS: BASO % 0.5 % (0.0-2.0); EOS # 0.2 K/mm3 (0.0-0.7); EOS % 2.1 % (0.0-4.0); GRAN # 6.2 K/mm3 (1.4-6.5); GRAN % 82.1 % (42.2-75.2); HEMATOCRIT 37.8 % (37.0-47.0); HEMOGLOBIN 12.3 g/dl (12.5-16.0); LYMPH # 0.7 K/mm3 (1.2-3.4); LYMPH % 9.1 % (20.0-51.0); MEAN CELL VOLUME 97 fl (80.0-100.0); MEAN CORPUSCULAR HEMOGLOBIN 32 pg (27-31); MEAN CORPUSCULAR HGB CONC 33 g/dl (33.0-37.0); MEAN PLATELET VOLUME 8.6 fl (7.4-10.4); MONO # 0.4 K/mm3 (0.1-0.6); MONO % 5.7 % (1.7-9.3); PLATELET COUNT 219 K/mm3 (130-400); RED BLOOD COUNT 3.91 M/mm3 (4.10-5.30); REDCELL DISTRIBUTION WIDTH-CV 14.2 % (11.5-14.5)
[2021-11-19 18:54] LABS: INR 1.4 (0.8-3.0); PROTHROMBIN TIME 16.2 SECONDS (9.7-12.8)
[2021-11-19 19:09] LABS: ALBUMIN 3.5 gm/dL (3.4-4.8); BILIRUBIN,TOTAL 0.7 mg/dL (0.2-1.2); CALCIUM 8.4 mg/dL (8.4-10.2); CREATININE, serum 2.95 mg/dL (0.57-1.11); TOTAL PROTEIN 8.1 gm/dL (6.2-8.1)
[2021-11-19 19:14] LABS: TROPONIN-I 0.03 ng/mL (0.00-0.033)
[2021-11-19 20:20] VITALS: BP 177/66; PULSE 86
== END 2021-11-19 20:20 | disposition home or self-care (01) ==
LOC: COL.ER 18:20
PROVIDERS: Personal Emergency Response Attendant
DX: I48.92 Unspecified atrial flutter (principal); I10 Essential (primary) hypertension; Z79.01 Long term (current) use of anticoagulants; Z79.899 Other long term (current) drug therapy; Z99.2 Dependence on renal dialysis; Z98.890 Other specified postprocedural states

== ENCOUNTER 2022-01-31 07:55 | Day surgery (SDC) | payer MEDICARE, OTHER ==
[~2022-01-31] VITALS: Ht 144.9 cm; Wt 47.9 kg
[2022-01-31] VITALS (7 sets, daily range): BP systolic 98–149; BP diastolic 47–84; PULSE 44–123; TEMP 98.7
[2022-01-31] MEDS ORDERED: AURYXIA1 GM PO (08:16)
[2022-01-31] MEDS ORDERED: LASIX 40MG TABL40 MG PO (08:19)
[2022-01-31] MEDS ORDERED: NATURAL E400 IU PO (08:20)
[2022-01-31] MEDS ORDERED: DEBROX OT (08:21)
[2022-01-31 08:44] LABS: BASO # 0.1 K/mm3 (0.0-0.2); BASO % 1.2 % (0.0-2.0); EOS # 0.1 K/mm3 (0.0-0.7); EOS % 1.4 % (0.0-4.0); GRAN # 6.9 K/mm3 (1.4-6.5); GRAN % 81.4 % (42.2-75.2); HEMATOCRIT 43.9 % (37.0-47.0); HEMOGLOBIN 13.8 g/dl (12.5-16.0); LYMPH # 0.6 K/mm3 (1.2-3.4); LYMPH % 7.6 % (20.0-51.0); MEAN CELL VOLUME 102 fl (80.0-100.0); MEAN CORPUSCULAR HEMOGLOBIN 32 pg (27-31); MEAN CORPUSCULAR HGB CONC 31 g/dl (33.0-37.0); MEAN PLATELET VOLUME 9.2 fl (7.4-10.4); MONO # 0.7 K/mm3 (0.1-0.6); PLATELET COUNT 210 K/mm3 (130-400); RED BLOOD COUNT 4.29 M/mm3 (4.10-5.30); REDCELL DISTRIBUTION WIDTH-CV 15.4 % (11.5-14.5)
[2022-01-31 08:52] LABS: INR 2.3 (0.8-3.0); PROTHROMBIN TIME 26.4 SECONDS (9.7-12.8)
[2022-01-31 08:54] LABS: CALCIUM 10.1 mg/dL (8.4-10.2); CREATININE, serum 3.94 mg/dL (0.57-1.11); MAGNESIUM 2.5 mg/dL (1.6-2.6); PARTIAL THROMBOPLASTIN TIME 45.9 SECONDS (26.0-37.0); POTASSIUM 5.1 mmol/L (3.5-4.5)
[2022-01-31 09:15] LABS: THYROID STIMULATING HORMONE 2.052 uIU/mL (0.350-4.940)
[2022-01-31] MEDS ORDERED: MULTAQ400 MG PO (11:10)
== END 2022-01-31 13:00 | disposition home or self-care (01) ==
LOC: COL.CAR 07:55
PROVIDERS: Internal Medicine Cardiovascular Disease
DX: I48.92 Unspecified atrial flutter (principal); Z87.891 Personal history of nicotine dependence
CPT/HCPCS: J0282; J2704; J7060; J7120

== ENCOUNTER 2023-05-14 08:04 | Inpatient (IN) | payer MEDICARE, OTHER ==
[~2023-05-14] VITALS: Ht 144.8 cm; Wt 48.5 kg
[~2023-05-14 08:04] MED LIST changes: +AURYXIA1 GM PO; +CEPHALEXIN500 M1 PO; +COUMADIN 5MG5 MG/TAB PO; +DEBROX OT; +DIOVAN 40MG40 MG PO; +LASIX 80MG TABL80 MG PO; +MULTAQ400 MG PO; +NATURAL E400 IU PO; +NATURE'S BLEND100 M2 PO; +VITAMIN B12 781 TAB PO
[2023-06-09 09:57] LABS: HEMATOCRIT 41.6 % (37.0-47.0); HEMOGLOBIN 13.3 g/dl (12.5-16.0); MEAN CELL VOLUME 98 fl (80.0-100.0); MEAN CORPUSCULAR HEMOGLOBIN 31 pg (27-31); MEAN CORPUSCULAR HGB CONC 32 g/dl (33.0-37.0); PLATELET COUNT 268 K/mm3 (130-400); RED BLOOD COUNT 4.26 M/mm3 (4.10-5.30); REDCELL DISTRIBUTION WIDTH-CV 16.4 % (11.5-14.5)
[2023-06-09 10:04] LABS: INR 1.6 (0.8-3.0); PROTHROMBIN TIME 16.8 SECONDS (9.7-12.8)
[2023-06-09 10:12] LABS: ALBUMIN 3.5 gm/dL (3.4-4.8); CALCIUM 10.4 mg/dL (8.4-10.2); CREATININE, serum 3.79 mg/dL (0.57-1.11); PHOSPHOROUS 3.1 mg/dL (2.3-4.7); POTASSIUM 4.3 mmol/L (3.5-4.5)
[2023-06-09] MEDS ORDERED: Heparin/D5W 250 ML IV SCH (10:30)
[2023-06-09] MEDS ORDERED: Heparin 5,000 UNITS/ML 1 ML VIAL IV PRN (10:30)
[2023-06-09] MEDS ORDERED: Heparin 5,000 UNITS/ML 1 ML VIAL IV ONE (10:30)
[2023-06-09 11:21] LABS: PARTIAL THROMBOPLASTIN TIME 34.5 SECONDS (26.0-37.0)
[2023-06-09 12:00] VITALS: BP 156/66; PULSE 65; TEMP 97.8
[2023-06-09] MEDS ORDERED: Heparin 1,000 UNITS/ML 10 ML Multi-Dose VIAL ICA SCH (14:30)
[2023-06-09 15:45] VITALS: BP 145/49; PULSE 70; TEMP 98.3
[2023-06-09 17:00] VITALS: BP_SYST 145
[2023-06-09 19:37] VITALS: BP 152/71; PULSE 69; TEMP 98
[2023-06-09 20:00] VITALS: BP_SYST 152
[2023-06-09] MEDS ORDERED: Atenolol 50 MG TAB PO SCH (21:00)
[2023-06-09 23:50] VITALS: BP 138/66; PULSE 70; TEMP 98.8
[2023-06-10] VITALS (12 sets, daily range): BP systolic 130–150; BP diastolic 53–67; PULSE 61–65; TEMP 97.6–98.3
[2023-06-10 05:43] LABS: BASO # 0.1 K/mm3 (0.0-0.2); BASO % 0.8 % (0.0-2.0); EOS # 0.3 K/mm3 (0.0-0.7); EOS % 4.4 % (0.0-4.0); GRAN # 4.4 K/mm3 (1.4-6.5); GRAN % 68.8 % (42.2-75.2); LYMPH # 1.1 K/mm3 (1.2-3.4); LYMPH % 16.7 % (20.0-51.0); MEAN CELL VOLUME 97 fl (80.0-100.0); MEAN CORPUSCULAR HGB CONC 32 g/dl (33.0-37.0); MEAN PLATELET VOLUME 9.2 fl (7.4-10.4); MONO # 0.6 K/mm3 (0.1-0.6); PLATELET COUNT 174 K/mm3 (130-400); RED BLOOD COUNT 3.22 M/mm3 (4.10-5.30); REDCELL DISTRIBUTION WIDTH-CV 16.3 % (11.5-14.5)
--- NOTE | 2023-06-10 06:04 | NUR ---
heparin infusion @ 7cc/hr, hepXa @ goal x2, next level due tomorrow am.
[2023-06-10 06:07] LABS: ALBUMIN 2.9 gm/dL (3.4-4.8); CALCIUM 9.4 mg/dL (8.4-10.2); CREATININE, serum 5.43 mg/dL (0.57-1.11); MAGNESIUM 2.3 mg/dL (1.6-2.6); PHOSPHOROUS 3.4 mg/dL (2.3-4.7); POTASSIUM 4.1 mmol/L (3.5-4.5)
--- NOTE | 2023-06-10 06:50 | NUR ---
resting in bed, bedside shift report received from GRACIE Kaufman
[2023-06-10 07:51] LABS: HEMATOCRIT 31.3 % (37.0-47.0); MEAN CORPUSCULAR HEMOGLOBIN 31 pg (27-31)
[2023-06-10 07:52] LABS: HEMOGLOBIN 9.9 g/dl (12.5-16.0)
--- NOTE | 2023-06-10 08:30 | NUR ---
watching her methodist program on TV, will wait for assessment until this is completed,
--- NOTE | 2023-06-10 08:45 | NUR ---
physical therapy in to work with patient, assisted her up and into chair for breakfast
[2023-06-10] MEDS ORDERED: Folic Acid 1 MG TAB PO SCH (09:00)
[2023-06-10] MEDS ORDERED: Thiamine 100 MG TAB PO SCH (09:00)
[2023-06-10] MEDS ORDERED: Renal Vitamin (Vit B/Vit C/Biotin) CAP PO SCH (09:00)
[2023-06-10] MEDS ORDERED: Furosemide 80 MG TAB PO SCH (09:00)
[2023-06-10] MEDS ORDERED: D-Alpha Tocopheryl (Vitamin E) 400 Units CAP PO SCH (09:00)
[2023-06-10] MEDS ORDERED: Sucralfate Susp 1 GM/10 ML UD PO SCH (11:30)
--- NOTE | 2023-06-10 11:54 | NUR ---
resting in recliner, full assessment completed, see interventions for further info,
--- NOTE | 2023-06-10 12:20 | NUR ---
residential appliance repair technician called this nurse stating her HR was in the mid to upper 30s and this was seen by this nurse also on monitor screen, entered room and she appears to be dozing in recliner, awakened and informed patient her heart rate was a little slow and she states she feels fine, rechecked monitor screen and HR now in the mid 40s, will monitor
[2023-06-10 13:02] LABS: HEMOGLOBIN 11.4 g/dl (12.5-16.0)
[2023-06-10 13:03] LABS: HEMATOCRIT 34.8 % (37.0-47.0)
--- NOTE | 2023-06-10 13:11 | NUR ---
pvc monitor is showing heart rate in low 60s, sitting up in chair eating lunch
--- NOTE | 2023-06-10 17:00 | NUR ---
refused carafate, she is unsure why started her on this and wants to wait until tomorrow to talk with
--- NOTE | 2023-06-10 19:50 | NUR ---
PT A&O SITTING UP IN CHAIR READING. INFORMED BY TELE THAT PT HR IS IN LOW 40'S. PT DENYING DIZZINESS, LIGHTHEADEDNESS, SOB, OR PAIN. HOSPITALIST VU AWARE & WILL HOLD EVENING ATENOLOL. HEP GTT INFUSING TO LEFT AC @ 7MLS/HR & NEXT HEP XA @ 0500. PT DENYING FURTHER NEEDS & CALL LIGHTS IN REACH.
--- NOTE | 2023-06-10 21:51 | NUR ---
TELE NOW SHOWING HR IN 50S-60S. PT REPORTS FEELING "OK" & DENYING SYMPTOMS
[2023-06-11] VITALS (12 sets, daily range): BP systolic 136–176; BP diastolic 49–65; PULSE 67–76; TEMP 97.2–99.1
--- NOTE | 2023-06-11 04:57 | NUR ---
PT RESTING IN BED WITH EVEN & UNLABORED RESP. TELE STATES HR IS IN UPPER 60'S NOW. CALL LIGHT IN REACH.
[2023-06-11 06:45] LABS: BASO % 0.5 % (0.0-2.0); EOS # 0.3 K/mm3 (0.0-0.7); EOS % 3.9 % (0.0-4.0); GRAN # 4.9 K/mm3 (1.4-6.5); LYMPH # 0.7 K/mm3 (1.2-3.4); LYMPH % 10.3 % (20.0-51.0); MEAN CELL VOLUME 99 fl (80.0-100.0); MEAN CORPUSCULAR HGB CONC 32 g/dl (33.0-37.0); MEAN PLATELET VOLUME 9.5 fl (7.4-10.4); MONO # 0.5 K/mm3 (0.1-0.6); PLATELET COUNT 178 K/mm3 (130-400); RED BLOOD COUNT 3.09 M/mm3 (4.10-5.30); REDCELL DISTRIBUTION WIDTH-CV 16.3 % (11.5-14.5)
[2023-06-11 06:46] LABS: HEMATOCRIT 30.5 % (37.0-47.0); HEMOGLOBIN 9.7 g/dl (12.5-16.0); MEAN CORPUSCULAR HEMOGLOBIN 31 pg (27-31)
[2023-06-11 07:03] LABS: ALBUMIN 2.9 gm/dL (3.4-4.8); CALCIUM 9.5 mg/dL (8.4-10.2); CREATININE, serum 7.31 mg/dL (0.57-1.11); MAGNESIUM 2.5 mg/dL (1.6-2.6); PHOSPHOROUS 4.5 mg/dL (2.3-4.7); POTASSIUM 4.2 mmol/L (3.5-4.5)
--- NOTE | 2023-06-11 07:30 | NUR ---
[facility] Patient up to the bathroom this am and independent with hygiene. Confirmed with patient to the OR 06/13/23, patient under the impression she was going to day. Clarified and reviewed with patient. Spoke with linen room houseperson Marivel & supervisor malt house Erick sheikh IV to patient LAC. Patient reports she was a hard stick. I spoke with Nicole in AIV she is willing to place IV after dialysis to RUE
[2023-06-11] MEDS ORDERED: hydrALAZINE 10 MG TAB PO SCH ×2 (09:00)
--- NOTE | 2023-06-11 11:31 | NUR ---
Dialysis Note Pt arrived via WC cvc care per protocol.Uf goal set for 1.5 and 1.5 removed. Pt tolerated tx well dcd back to room via WC no concerns voiced
--- NOTE | 2023-06-11 13:08 | NUR ---
Patient resting in bed. Dialysis completed. I called and spoke with cardiology Kisha and medication changes clarified with her & patient. Patient is very knowledgable and aware of her medications. Each medication given reviewed carefully. BP is elevated. Patient to order lunch independently. AIV started Right forearm IV. IV to Left AC to be dc and heparin continues per protocol
[2023-06-11] MEDS ORDERED: COUMADIN 1MG1 MG/TAB PO ×2 (13:25→13:28)
[2023-06-11] MEDS ORDERED: COUMADIN 2MG2 MG/TAB PO (13:27)
[2023-06-11] MEDS ORDERED: hydrALAZINE 25 MG TAB PO SCH (14:00)
--- NOTE | 2023-06-11 15:19 | NUR ---
Lcpc met with patient to discuss discharge planning. Patient lives alone in [place] and sees Dr. Wyatt for primary care. Patient gets most of her medications through [facility] by [facility], however occasionally uses [facility]. Patient has a walker at home that she uses most of the time and reported she is mostly independent with ADLS. Patient does not do showers or baths due to her port placement. Patient has dialysis at [facility] and uses [facility] [employer] to get there and back. Patient is and advised her daughter, Melody (ph#[phone]) is DPOA-HC. Patient plans to return home at time of discharge. Discharge Plan: Home
[2023-06-11] MEDS ORDERED: Cyanocobalamin (Vit B-12) 1,000 MCG TAB PO SCH (16:30)
--- NOTE | 2023-06-11 18:58 | NUR ---
Patient has done well this afternoon. Minimal needs. Repostioned in bed for comfort. Resting in bed, watching TV. She does not void. Heparin drip as ordered. rounded plan of care reviewed. Report to Juani who will resume cares.
--- NOTE | 2023-06-11 20:20 | NUR ---
PT A&O SITTING UP IN BED. VSS. SHIFT ASSESSMENT COMPLETE & HS MEDS GIVEN. PT DENYING PAIN. HEP GTT INFUSING TO RIGHT FOREARM @ 7MLS/HR. PT DENYING FURTHER NEEDS. CALL LIGHT IN REACH & FALL PRECAUTIONS IN PLACE.
[2023-06-12] VITALS (13 sets, daily range): BP systolic 128–171; BP diastolic 50–60; PULSE 63–78; TEMP 97.6–98.2
--- NOTE | 2023-06-12 03:39 | NUR ---
PT RESTING IN BED WITH EVEN & UNLABORED RESP. CALL LIGHT IN REACH
[2023-06-12] MEDS ORDERED: hydrALAZINE 20 MG/ML 1 ML VIAL IV PRN (04:00)
--- NOTE | 2023-06-12 05:24 | NUR ---
0400 BLOOD PRESSURE WAS 171/56. HOSPITALIST CHONGON NOTIFIED & NEW ORDER FOR PRN HYDRALAZINE 10MG IV Q4HR FOR SBP >170. 0415 PRN HYDRALAZINE GIVEN 0515 REASSESSED BP & WAS 168/59
[2023-06-12 07:51] LABS: ALBUMIN 2.9 gm/dL (3.4-4.8); CALCIUM 9.6 mg/dL (8.4-10.2); CREATININE, serum 4.82 mg/dL (0.57-1.11); PHOSPHOROUS 3.5 mg/dL (2.3-4.7); POTASSIUM 3.9 mmol/L (3.5-4.5)
[2023-06-12] MEDS ORDERED: LR 1,000 ML IV SCH (08:15)
[2023-06-12 09:07] LABS: BASO # 0.1 K/mm3 (0.0-0.2); BASO % 0.9 % (0.0-2.0); EOS # 0.3 K/mm3 (0.0-0.7); EOS % 4.4 % (0.0-4.0); GRAN # 4.2 K/mm3 (1.4-6.5); GRAN % 73.9 % (42.2-75.2); HEMATOCRIT 32.3 % (37.0-47.0); HEMOGLOBIN 10.4 g/dl (12.5-16.0); LYMPH # 0.6 K/mm3 (1.2-3.4); LYMPH % 11.1 % (20.0-51.0); MEAN CELL VOLUME 97 fl (80.0-100.0); MEAN CORPUSCULAR HEMOGLOBIN 31 pg (27-31); MEAN CORPUSCULAR HGB CONC 32 g/dl (33.0-37.0); MEAN PLATELET VOLUME 9.2 fl (7.4-10.4); MONO # 0.5 K/mm3 (0.1-0.6); MONO % 9.5 % (1.7-9.3); PLATELET COUNT 182 K/mm3 (130-400); RED BLOOD COUNT 3.34 M/mm3 (4.10-5.30); REDCELL DISTRIBUTION WIDTH-CV 16.3 % (11.5-14.5)
--- NOTE | 2023-06-12 09:07 | NUR ---
PT UP TO NGUYEN WITH THERAPY. ATE 100 % OF BREAKFAST. REVIEWED FLUID RESTRICTIONS WITH PT AND SHE VERBALIZED UNDERSTANDING. HEPARIN GTT CHANGED TO 6OO UNITS PER HR. PLAN ON SURGERY TOMORROW FOR GRAFT FORMATION.
[2023-06-12] MEDS ORDERED: Atenolol 25 MG TAB PO SCH (10:00)
[2023-06-12] MEDS ORDERED: amLODIPine 5 MG TAB PO SCH (10:00)
--- NOTE | 2023-06-12 11:27 | NUR ---
optical worker attended clinical rounds and confirmed that patient desires to return home. Dr Euceda and this worker discussed home health, however patient does not wish to have this service at this time. Discharge plan: Home.
--- NOTE | 2023-06-12 14:55 | NUR ---
NO CHANGE IN CURRENT HEPARIN GTT.
[2023-06-12] MEDS ORDERED: Heparin 1,000 UNITS/ML 10 ML Multi-Dose VIAL ICA SCH (17:30)
[2023-06-12] MEDS ORDERED: NS 1,000 ML IV SCH (17:30)
--- NOTE | 2023-06-12 19:19 | NUR ---
report received from leobardo hall. pt sitting in recliner watching tv. pt denies pain. chair alarm on. call light in reach. all needs met at this time.
--- NOTE | 2023-06-12 22:43 | NUR ---
shift assessment complete, see documentation. pt hep xa came back at 0.45 and is in goal range. heparin drip running at 6ml/hr per orders. pt tolerating drip and hs meds well. pt denies pain. pt resting in bed and reading her book. call light in reach. all needs met at this time.
[2023-06-13] VITALS (16 sets, daily range): BP systolic 111–138; BP diastolic 31–52; PULSE 64–70; TEMP 97–98.2
--- NOTE | 2023-06-13 04:14 | NUR ---
pt heparin stopped at 0400 per orders. pt tolerated well. call light in reach. all needs met at this time.
[2023-06-13 07:19] LABS: BASO # 0.1 K/mm3 (0.0-0.2); BASO % 0.7 % (0.0-2.0); EOS # 0.2 K/mm3 (0.0-0.7); EOS % 2.8 % (0.0-4.0); GRAN # 6.6 K/mm3 (1.4-6.5); GRAN % 77.2 % (42.2-75.2); HEMOGLOBIN 11.4 g/dl (12.5-16.0); LYMPH # 0.9 K/mm3 (1.2-3.4); LYMPH % 10.9 % (20.0-51.0); MEAN CELL VOLUME 97 fl (80.0-100.0); MEAN CORPUSCULAR HEMOGLOBIN 31 pg (27-31); MEAN CORPUSCULAR HGB CONC 32 g/dl (33.0-37.0); MEAN PLATELET VOLUME 9.2 fl (7.4-10.4); MONO # 0.7 K/mm3 (0.1-0.6); MONO % 8.2 % (1.7-9.3); PLATELET COUNT 225 K/mm3 (130-400); RED BLOOD COUNT 3.67 M/mm3 (4.10-5.30); REDCELL DISTRIBUTION WIDTH-CV 16.5 % (11.5-14.5)
[2023-06-13 07:20] LABS: HEMATOCRIT 35.5 % (37.0-47.0)
[2023-06-13 07:40] LABS: ALBUMIN 3.4 gm/dL (3.4-4.8); CREATININE, serum 6.73 mg/dL (0.57-1.11); MAGNESIUM 2.2 mg/dL (1.6-2.6); PHOSPHOROUS 4.6 mg/dL (2.3-4.7); POTASSIUM 4.3 mmol/L (3.5-4.5)
[2023-06-13] MEDS ORDERED: NS 10 ML IV ONE (09:35)
[2023-06-13] MEDS ORDERED: Lidocaine PF 2% (20 MG/ML) 5 ML VIAL ONE (09:35)
[2023-06-13] MEDS ORDERED: fentaNYL 50 MCG/ML 2 ML VIAL ONE (09:35)
--- NOTE | 2023-06-13 10:17 | NUR ---
Dialysis Note Pt arrived to tx ambulatory. cvc care per protoco. Goal set for 1kg and 1kg removed. Pt tolerated tx well dcd back to room ambulatory.
[2023-06-13] MEDS ORDERED: Gelatin Sponge,Absorbable Size 100 SPONGE TP ONE (11:39)
[2023-06-13] MEDS ORDERED: Thrombin Human (Recombinant) 5,000 UNITS VIAL TP ONE (11:39)
[2023-06-13] MEDS ORDERED: Topical Skin Adhesive 1 EACH (1 ML) TOP ONE (11:39)
--- NOTE | 2023-06-13 11:41 | NUR ---
AFTER DIALYSIS PT WENT TO SURGERY PER BED WITH LINDA @ 1100. PT IN DIALYSIS FROM 15 - 1014.
[2023-06-13] MEDS ORDERED: Morphine 4 MG/ML VIAL IV PRN (11:45)
[2023-06-13] MEDS ORDERED: Meperidine 50 MG/ML 1 ML VIAL IV PRN (11:45)
[2023-06-13] MEDS ORDERED: Ondansetron 4 MG/2 ML VIAL IV PRN (11:45)
[2023-06-13] MEDS ORDERED: ePHEDrine 50 MG/ML VIAL ONE (12:34)
--- NOTE | 2023-06-13 13:32 | NUR ---
PT TO ROOM 326 PER BED WITH REPORT FROM SUNITA BOWMAN PACU @7493. PT IS A/O X4, IV TO RFA, NEW FISTULA PLACED IN LEFT UPPPER ARM. DRESSING TO LEFT ARM CDI. PD CATHETER REMOVED. VSS.
[2023-06-13] MEDS ORDERED: Heparin/D5W 250 ML IV SCH (21:00)
[2023-06-13] MEDS ORDERED: Warfarin 5 MG TAB PO SCH (21:00)
--- NOTE | 2023-06-13 21:08 | NUR ---
PT IN BED, IS ALERT AND ORIENTED X4. HEPARIN GTT RESTARTED AT 600U/HR TO RFA SITE. NOTED IV SITE IS BRUISED, FLUSHED WELL. HS MEDS GIVEN. WILL RECHECK LAB AT 0300. HAS RT CHEST DIALYSIS CATHETER, DRSG TO LT ABD OLD PD CATH SITE AND NEW AV FISTULA TO GÓMEZ, HAS GOOD BRUIT, DRSG D/I.
[2023-06-14] VITALS (14 sets, daily range): BP systolic 106–145; BP diastolic 44–54; PULSE 63–72; TEMP 97.4–98.7
[2023-06-14 03:37] LABS: BASO % 0.6 % (0.0-2.0); EOS # 0.1 K/mm3 (0.0-0.7); EOS % 1.9 % (0.0-4.0); GRAN # 5.1 K/mm3 (1.4-6.5); GRAN % 78.2 % (42.2-75.2); HEMATOCRIT 31.1 % (37.0-47.0); LYMPH # 0.5 K/mm3 (1.2-3.4); LYMPH % 7.4 % (20.0-51.0); MEAN CELL VOLUME 98 fl (80.0-100.0); MEAN CORPUSCULAR HEMOGLOBIN 31 pg (27-31); MEAN CORPUSCULAR HGB CONC 32 g/dl (33.0-37.0); MEAN PLATELET VOLUME 9.2 fl (7.4-10.4); MONO # 0.8 K/mm3 (0.1-0.6); MONO % 11.7 % (1.7-9.3); PLATELET COUNT 159 K/mm3 (130-400); RED BLOOD COUNT 3.19 M/mm3 (4.10-5.30); REDCELL DISTRIBUTION WIDTH-CV 16.9 % (11.5-14.5)
[2023-06-14 03:58] LABS: CALCIUM 9.2 mg/dL (8.4-10.2); CREATININE, serum 4.09 mg/dL (0.57-1.11); PHOSPHOROUS 3.3 mg/dL (2.3-4.7)
--- NOTE | 2023-06-14 04:00 | NUR ---
PT'S HEP XA=0.58, NEXT DRAW AT 0900.
--- NOTE | 2023-06-14 08:13 | NUR ---
PT LAYING IN BED, ALERT AND ORIENTEDX4. NO COMPLAINTS OF PAIN AT THIS TIME. ABDOMINAL DRESSING CLEAN, DRY, INTACT. LEFT ARM DRESSING CLEAN, DRY, INTACT. BRUIT FELT. HEMODIALYSIS CATH ON RIGHT CHEST. PUT NEW BALAJI ON IT. BRUISING AROUND PERIPHERAL IV LINE. ASSESSED, GAVE MORNING MEDS. CALL LIGHT WITHIN REACH.
[2023-06-14 09:37] LABS: INR 1.1 (0.8-3.0); PROTHROMBIN TIME 11.6 SECONDS (9.7-12.8)
--- NOTE | 2023-06-14 20:00 | NUR ---
PT SITTING IN CHAIR AT BEDSIDE. IS ALERT AND ORIENTED X4. HAS HEP GTT TO RFA, BRUISING AT SITE. RT CHEST DIALYSIS CATH PRESENT. HAS NEW AV FISTULA TO LUE WITH DRY GAUZE ON. DRSG TO LT ABD D/I. DENIES PAIN AT THIS TIME.
[2023-06-14] MEDS ORDERED: Warfarin 5 MG TAB PO ONE (21:00)
[2023-06-15] VITALS (13 sets, daily range): BP systolic 104–141; BP diastolic 41–54; PULSE 62–80; TEMP 97.6–98.4
--- NOTE | 2023-06-15 05:00 | NUR ---
LAB DRAWN WITHOUT PROBLEM.
[2023-06-15 05:56] LABS: INR 1.3 (0.8-3.0); PROTHROMBIN TIME 14.2 SECONDS (9.7-12.8)
[2023-06-15 06:24] LABS: BASO % 0.6 % (0.0-2.0); EOS # 0.2 K/mm3 (0.0-0.7); EOS % 3.7 % (0.0-4.0); GRAN # 4.6 K/mm3 (1.4-6.5); GRAN % 74.3 % (42.2-75.2); LYMPH # 0.6 K/mm3 (1.2-3.4); LYMPH % 9.5 % (20.0-51.0); MEAN CELL VOLUME 98 fl (80.0-100.0); MEAN CORPUSCULAR HGB CONC 32 g/dl (33.0-37.0); MEAN PLATELET VOLUME 9.8 fl (7.4-10.4); MONO # 0.7 K/mm3 (0.1-0.6); MONO % 11.6 % (1.7-9.3); PLATELET COUNT 142 K/mm3 (130-400); RED BLOOD COUNT 2.92 M/mm3 (4.10-5.30); REDCELL DISTRIBUTION WIDTH-CV 16.7 % (11.5-14.5)
[2023-06-15 06:25] LABS: HEMATOCRIT 28.6 % (37.0-47.0); HEMOGLOBIN 9.2 g/dl (12.5-16.0); MEAN CORPUSCULAR HEMOGLOBIN 32 pg (27-31)
[2023-06-15 06:35] LABS: CALCIUM 9.3 mg/dL (8.4-10.2); CREATININE, serum 6.17 mg/dL (0.57-1.11); POTASSIUM 4.3 mmol/L (3.5-4.5)
--- NOTE | 2023-06-15 08:48 | NUR ---
Ambulated pt to dialysis. Pt not having any pain complaints, reports she feels good. Breakfast just arrived as I was taking her over.
--- NOTE | 2023-06-15 12:43 | NUR ---
Dialysis Note Pt arrived to tx ambulatory. cvc care per protocol. Goal set for 1 kg and 1 KG removed. pt dcd back to room with no concerns voiced
[2023-06-15] MEDS ORDERED: Warfarin 5 MG TAB PO ONE (21:00)
[2023-06-16] VITALS (12 sets, daily range): BP systolic 112–146; BP diastolic 42–61; PULSE 66–74; TEMP 97.6–98.5
[2023-06-16 07:20] LABS: BASO # 0.1 K/mm3 (0.0-0.2); BASO % 0.8 % (0.0-2.0); EOS # 0.2 K/mm3 (0.0-0.7); EOS % 3.2 % (0.0-4.0); GRAN # 4.6 K/mm3 (1.4-6.5); GRAN % 74.8 % (42.2-75.2); INR 1.6 (0.8-3.0); LYMPH # 0.6 K/mm3 (1.2-3.4); LYMPH % 9.8 % (20.0-51.0); MEAN CELL VOLUME 98 fl (80.0-100.0); MEAN CORPUSCULAR HGB CONC 32 g/dl (33.0-37.0); MEAN PLATELET VOLUME 10.4 fl (7.4-10.4); MONO # 0.7 K/mm3 (0.1-0.6); MONO % 11.1 % (1.7-9.3); PLATELET COUNT 165 K/mm3 (130-400); PROTHROMBIN TIME 17.6 SECONDS (9.7-12.8); RED BLOOD COUNT 2.86 M/mm3 (4.10-5.30); REDCELL DISTRIBUTION WIDTH-CV 16.8 % (11.5-14.5)
[2023-06-16 07:22] LABS: HEMATOCRIT 28.1 % (37.0-47.0); HEMOGLOBIN 8.9 g/dl (12.5-16.0); MEAN CORPUSCULAR HEMOGLOBIN 31 pg (27-31)
[2023-06-16 07:37] LABS: CALCIUM 8.9 mg/dL (8.4-10.2); CREATININE, serum 3.88 mg/dL (0.57-1.11); POTASSIUM 3.7 mmol/L (3.5-4.5)
--- NOTE | 2023-06-16 08:41 | NUR ---
Patient up sitting at edge of bed for breakfast. She is alert and oriented. Minimal complaints of pain. Heparin drip as ordered to Rfa, hep xa level requring no change to drip. She was steady on her feet up to sink. Brushing her teeth and hair. Patient not willing to sit in chair, reports the chair being to uncomfortable. Patient aware of the importance of repostioning in bed and preventing skin breakdown. Skin dry lotion provided. Shower offered, she reports having wipes. LUQ dressing CDI. LUE dressing intact slight shadowing noted. R>Chest dialysis cath intact. Will monitor closely.
--- NOTE | 2023-06-16 14:59 | NUR ---
rounded & he is aware of patient LUE arm drgs needing to be changed over night. He DC abdominal drg. Brusing noted in abdomen at prior peritineal dialysis site. Will monitor
--- NOTE | 2023-06-16 15:01 | NUR ---
Patient up to the chair for lunch, stand by assist to bathroom and back to bed. She did well, denies other needs.
--- NOTE | 2023-06-16 18:06 | NUR ---
Patient sitting up in bed watching TV, and reading books. Denies needs at this time. Report off to loreenurse
[2023-06-16] MEDS ORDERED: Warfarin 5 MG TAB PO SCH (21:00)
[2023-06-17] MEDS ORDERED: hydrALAZINE 25 MG TAB PO SCH
[2023-06-17] MEDS ORDERED: Atenolol 25 MG TAB PO SCH
[2023-06-17] MEDS ORDERED: amLODIPine 5 MG TAB PO SCH
[2023-06-17 00:35] VITALS: BP_SYST 134
[2023-06-17 04:28] VITALS: BP 142/45; PULSE 72; TEMP 97.7
[2023-06-17 05:00] VITALS: BP_SYST 142
[2023-06-17 07:54] VITALS: BP 129/55; PULSE 74; TEMP 98
--- NOTE | 2023-06-17 08:45 | NUR ---
pt a&ox3 resting in bed. vss and tele in place. pt denies pain. meds given and assessment complete. right forearm INT patent. right chest HD catheter dressing is cdi. JUAN FRANCISCO fistula has strong thrill and bruit. pt denies needs at this time. call light in reach.
[2023-06-17 09:09] VITALS: BP_SYST 129
[2023-06-17 09:25] LABS: INR 2.3 (0.8-3.0); PROTHROMBIN TIME 24.4 SECONDS (9.7-12.8)
--- NOTE | 2023-06-17 10:02 | NUR ---
heparin gtt stopped and pm warfarin dose given per dr hernandez order. INR 2.3 today.
[2023-06-17] MEDS ORDERED: APRESOLINE 25MG25 MG PO (10:08)
[2023-06-17] MEDS ORDERED: TENORMIN 2525 MG/TAB PO (10:09)
[2023-06-17] MEDS ORDERED: NORVASC 5MG5 MG/TAB PO (10:09)
--- NOTE | 2023-06-17 11:44 | NUR ---
MARICEL provided patient list of HH providers, patient is set to discharge Sunday daughter will be arriving from out of the area to support her. Patient informed SW that she would like to set up with [facility] for HH care, MARICEL will update SW/staff for set upon discharge.
[2023-06-17] MEDS ORDERED: LIPITOR20 MG PO (11:45)
--- NOTE | 2023-06-17 11:47 | NUR ---
SW met with patient to inquire if she is currently established care for her dialysis treatment. Patient confirmed that she uses [facility] here in [place] and has transportation set up with [facility] at this time for SUNDAY//SUN treatment. SW verified with DR and schedule will be modified to SUN/SUN/SUN for treatment. SW attempted to contact agency to make this modification noted; agency closed on Sundays. Patient was upated with status and SW will informed SW/staff to contact [facility] Sunday for this change. Patiet stated that she would also contact them and make updates with [facility] for her transporation.
--- NOTE | 2023-06-17 12:50 | NUR ---
INT discontinued. discharge instructions given to pt. pm doses of hydralazine, atenolol, and amlodopine given to pt to take at home per dr hernandez. pt escorted to ER exit by wheelchair for [facility] to transport pt back home.
--- NOTE | 2023-06-18 10:05 | NUR ---
form worker contacted Day with [facility] dialysis and advised that patient was discharged yesterday and it was recommended by Dr Scales to receive dialysis this date. Day will reach out to patient and see if they can get patient into the one spot open this date.
== END 2023-06-17 12:45 | disposition home or self-care (01) | DRG 673 ==
LOC: SURG 06-09 09:00 → EDSTATUS 06-09 09:00 → SURG 06-09 09:23 → SDCO 06-09 11:30 → SURG 06-09 23:00 → SDCO 06-13 09:00 → SURG 06-17 12:45
PROVIDERS: Physician Assistant; Surgery; ADMIT Internal Medicine
PROC: 3E1M39Z Irrigation of Peritoneal Cavity using Dialysate, Percutaneous Approach (ICD-10-PCS; principal; 2023-06-09)
PROC: 03180ZF Bypass Left Brachial Artery to Lower Arm Vein, Open Approach (ICD-10-PCS; 2023-06-09)
PROC: 0WPGX3Z Removal of Infusion Device from Peritoneal Cavity, External Approach (ICD-10-PCS; 2023-06-09)
DX: I12.0 Hypertensive chronic kidney disease with stage 5 chronic kidney disease or end stage renal disease (principal); N18.6 End stage renal disease; Z99.2 Dependence on renal dialysis; Z95.2 Presence of prosthetic heart valve; D63.1 Anemia in chronic kidney disease
CPT/HCPCS: J0360; J0690; J1644; J2704; J3010; J7120; Q3014

== ENCOUNTER 2023-12-08 13:20 | Emergency (ER) | payer MEDICARE, OTHER ==
[~2023-12-08] VITALS: Ht 144.8 cm; Wt 50.0 kg
[~2023-12-08 13:20] MED LIST changes: +LIPITOR20 MG PO; +TENORMIN 2525 MG/TAB PO
[2023-12-08 13:26] VITALS: TEMP 97.8
[2023-12-08] MEDS ORDERED: Morphine 4 MG/ML VIAL IV ONE (14:30)
[2023-12-08] MEDS ORDERED: Ondansetron 4 MG/2 ML VIAL IV ONE (14:30)
[2023-12-08] MEDS ORDERED: NS 500 ML IV ONE (14:30)
[2023-12-08 15:00] LABS: MEAN CELL VOLUME 101 fl (80.0-100.0); MEAN CORPUSCULAR HGB CONC 32 g/dl (33.0-37.0); MEAN PLATELET VOLUME 9.7 fl (7.4-10.4); PLATELET COUNT 332 K/mm3 (130-400); RED BLOOD COUNT 2.75 M/mm3 (4.10-5.30); REDCELL DISTRIBUTION WIDTH-CV 15.2 % (11.5-14.5)
[2023-12-08 15:03] LABS: HEMATOCRIT 27.8 % (37.0-47.0); HEMOGLOBIN 8.9 g/dl (12.5-16.0); MEAN CORPUSCULAR HEMOGLOBIN 32 pg (27-31)
[2023-12-08 15:15] LABS: ALBUMIN 2.4 g/dL (3.4-4.8); BILIRUBIN,TOTAL 0.8 mg/dL (0.2-1.2); CALCIUM 9.5 mg/dL (8.4-10.2); CREATININE, serum 5.35 mg/dL (0.57-1.11); POTASSIUM 4.9 mEq/L (3.5-4.5); TOTAL PROTEIN 6.2 g/dl (6.2-8.1)
[2023-12-08 15:59] LABS: BAND 1 % (0-10); HYPOCHROMIA 1+; LYMPHOCYTE 1 % (20.0-51.0); NEUTROPHILS 96 % (42.0-75.2)
[2023-12-08 16:00] LABS: ANISOCYTOSIS 1+; PLATELET ESTIMATE NORMAL (NORMAL)
[2023-12-08 17:42] VITALS: BP 96/44; PULSE 129
== END 2023-12-08 17:44 | disposition short-term general hospital (02) ==
LOC: COL.ER 13:20
PROVIDERS: Personal Emergency Response Attendant
DX: I48.91 Unspecified atrial fibrillation (principal); N18.6 End stage renal disease; D72.829 Elevated white blood cell count, unspecified; R19.7 Diarrhea, unspecified; R79.89 Other specified abnormal findings of blood chemistry; D63.1 Anemia in chronic kidney disease; Z99.2 Dependence on renal dialysis; Z96.0 Presence of urogenital implants
CPT/HCPCS: J2270; J2405; J7040